=== PATIENT | male | born 1970 | race Caucasian/White ===

== ENCOUNTER 2020-03-18 17:29 | Emergency (ER) | payer OTHER ==
[2020-03-18] MEDS ORDERED: EPINEPHRINE ABBOJECT 1 MG IV ONE (17:30)
--- NOTE | 2020-03-18 17:43 | ERPHSYRPT ---
- History of Present Illness Source: EMS Exam Limitations: other (Full code w active CPR) Physician History: 49 yo wm w h/o DM/HTN/Morbid obesity presented per EMS in full arrest. Bystander CPR started until EMS arrived. EMS resumed CPR/established IO access/3amps epi before arrival/Intubated per EMS. Pt in asystole the entire episode despite interventions. Pt arrived in ER in asystole/Moved to trauma stretcher/CPR resumed/1amp epi/circulated w CPR/Asystole continued/no palpable pulse/Pupils fixed and dilated/no spontaneous respirations. Code called due to lack of response to treatment and approximately 45 minutes of asystole. Timing/Duration: other (Approx 45 minutes) - Review of Systems All Other Systems: Unable due to condition - Past Medical History Cardiac History: Hypertension Endocrine Medical History: Diabetes Type II - Social History Smoking Status: Never smoker Alcohol Use: Occ beer Patient Lives Alone: No - Nursing Vital Signs Nursing Vital Signs: Pain Scale Pain Intensity 0 - Physical Exam General Appearance: other (Asystolic pt) Eye Exam: other (Pupils fixed and dilated) Respiratory Exam: other (No respiratory effort) Cardiovascular Exam: other (No ausculatory sounds) Gastrointestinal/Abdomen Exam: other (Obese) Back Exam: other Extremity Exam: other Neurologic Exam: other (3T on GCS) Skin Exam: other (Mottled) - Course Nursing assessment & vital signs reviewed: No - Progress Progress: unchanged Progress Note: 03/18/20 17:46 See Hx 03/18/20 17:48 [employer] called Counseled pt/family regarding: diagnosis (Spoke w family in berievement room) - Departure Departure Disposition: Clinical Impression: Cardiopulmonary arrest Condition: Critical Care Time: Yes Referrals: NEFTALI GILBERT FNP [Primary Care Provider] -
== END 2020-03-18 17:45 | disposition expired ==
LOC: ED 17:29
DX: I46.9 Cardiac arrest, cause unspecified (principal); I10 Essential (primary) hypertension; E66.01 Morbid (severe) obesity due to excess calories; E11.9 Type 2 diabetes mellitus without complications
CPT/HCPCS: 99283; J0171